=== PATIENT | female | born 1960 | race Two or more races ===

== ENCOUNTER 2020-06-16 19:38 | Inpatient (IN) | payer OTHER ==
[2020-06-15 19:45] VITALS: BP 120/53
[~2020-06-16] VITALS: Ht 152.4 cm; Wt 101.2 kg
[2020-06-16] MEDS ORDERED: APIX2.5T PO (20:22)
[2020-06-16] MEDS ORDERED: METF-442 PO (20:22)
[2020-06-16] MEDS ORDERED: OXYC10TA49 PO (20:22)
[2020-06-16] MEDS ORDERED: ATOR20TA PO (20:22)
[2020-06-16] MEDS ORDERED: DOCU100C36 PO (20:22)
[2020-06-16 20:23] VITALS: BP 120/53
--- NOTE | 2020-06-16 20:29 | NUR ---
MS/OPHELIA/RN RECEIVED FROM [facility] AT ABOUT 1945, BROUGHT IN BY AMBULANCE. PATIENT WAS AWAKE, ALERT, ORIENTED X 4, [place] SPEAKING, COMFORTABLE, NO SIGNS OF DISTRESS NOTED. ADMISSION DONE PER PROTOCOL, ADMISSION INFORMATIONS WAS OBTAINED WITH THE HELP OF THE DAUGHTER WHO WAS AT BEDSIDE, TAUGHT THE USE OF CALL LIGHT AND PLACED AT BEDSIDE WITHIN REACH, FALL PRECAUTIONS PER PROTOCOL IMPLEMENTED. ENCOURAGED PATIENT TO USE THE CALL LIGHT FOR ASSISTANCE, VERBALIZED UNDERSTANDING. DUANE SHARMA, PEDRO, NOTIFIED FOR ADMISSION ORDERS. WILL MONITOR.
[2020-06-16] MEDS ORDERED: ONDANSETRON HCL/PF 4 MG/2 ML VIAL IVP PRN (21:00)
[2020-06-16] MEDS ORDERED: MAG HYDROX/AL HYDROX/SIMETH 30 ML UDC PO PRN (21:00)
[2020-06-16] MEDS ORDERED: Z GUARD REMEDY 2 OZ OINT TP PRN (21:00)
[2020-06-16] MEDS ORDERED: MAGNESIUM HYDROXIDE 30 ML UDC PO PRN (21:00)
[2020-06-16] MEDS ORDERED: ENOXAPARIN SODIUM 40 MG/0.4 ML DISP.SYRIN SQ SCH (21:00)
[2020-06-16] MEDS ORDERED: ACETAMINOPHEN 325 MG TABLET PO PRN (21:00)
[2020-06-16] MEDS ORDERED: LEVOFLOXACIN 500 MG /D5W 100ML 100 ML IV ONE (22:11)
[2020-06-16] MEDS: IV NS 0.9% 1,000 ML IV PRN (22:16)
[2020-06-16] MEDS: LEVOFLOXACIN 500 MG /D5W 100ML 500 MG in PREMIX 1 EA IV SCH (22:16)
--- NOTE | 2020-06-17 00:49 | NUR ---
MS/TELE/RN PATIENT IS SLEEPING, AROUSES EASILY, APPEAR COMFORTABLE, NO DISTRESS NOTED, CALL LIGHT IN REACH, WILL CONTINUE TO MONITOR.
[2020-06-17] MEDS ORDERED: DEXTROSE 50%-WATER 50 ML DISP.SYRIN IV PRN (01:30)
[2020-06-17] MEDS ORDERED: INSULIN REGULAR, HUMAN 100 UNIT/ML 3 ML VIAL SQ PRN (01:30)
--- NOTE | 2020-06-17 06:01 | NUR ---
MS/TELE/RN PATIENT IS SLEEPING AT THIS TIME, APPEAR COMFORTABLE, NO SIGNS OF DISTRESS NOTED, CALL LIGHT IN REACH, ALL NEEDS ATTENDED AT THIS TIME, WILL CONTINUE TO MONITOR.
[2020-06-17 06:17] LABS: BASOPHILS % (AUTO) 0.3 % (0.0-2.0); EOSINOPHILS % (AUTO) 0.8 % (0.0-6.0); HEMATOCRIT 34 % (33-45); HEMOGLOBIN 11.3 g/dL (11.5-14.8); LYMPHOCYTES # (AUTO) 1.6 /CMM (0.8-4.8); MEAN CORPUSCULAR HGB CONC 33 g/dl (31.0-36.0); MEAN CORPUSCULAR VOLUME 89 fL (82-100); MONOCYTES # (AUTO) 0.6 /CMM (0.1-1.30); MONOCYTES % (AUTO) 7.5 % (2.0-12.0); NEUTROPHILS # (AUTO) 5.4 /CMM (1.8-8.9); NEUTROPHILS % (AUTO) 70.4 % (43.0-81.0); PLATELET COUNT (AUTO) 223 /CMM (150-450); WHITE BLOOD COUNT (AUTO) 7.6 K/uL (4.3-11.0)
[2020-06-17 06:30] LABS: BILIRUBIN,URINE NEGATIVE (NEGATIVE); COLOR,URINE YELLOW (YELLOW); LEUKOCYTE ESTERASE ,URINE NEGATIVE (NEGATIVE); NITRITE, URINE NEGATIVE (NEGATIVE); PROTEIN,URINE NEGATIVE (NEGATIVE); UGLUCOSE NEGATIVE (NEGATIVE); UROBILINOGEN,URINE 0.2 EU/dL (0.2)
[2020-06-17 07:04] LABS: CALCIUM, SERUM 8.5 mg/dL (8.5-10.1); CREATININE 0.5 mg/dL (0.6-1.3); MAGNESIUM 2.2 mg/dL (1.8-2.4); PHOSPHORUS 3.4 mg/dL (2.5-4.9)
--- NOTE | 2020-06-17 07:54 | NUR ---
WOUND CARE CONSULT: PT PRESENTS WITH DISCOLORATION TO RT LOWER EXTREMITY AND SURGICAL DRESSINGS WHICH ARE DRY AND INTACT TO RT KNEE, PRESENT ON ADMISSION. RECOMMEND FOLLOW UP WITH ORTHO SURGEON. PT IS CONTINENT AND ABLE TO TURN AND REPOSITION IN BED. WILL SEE PRN. Addendum: 06/17/20 at 0756 by TAIWO MURCIA WNDNU Amended: Links added.
--- NOTE | 2020-06-17 07:55 | NUR ---
MS/RN OPENING NOTE RECEIVED PATIENT FROM [facility] NURSE. PATIENT IS AWAKE IN HOSPITAL BED A/O X4. NO ACUTE DISTRESS NOTED. PATIENT ON ROOM AIR, TOLERATING WELL NO SOB NOTED, BREATHING EVEN, NON LABORED. ALL SAFETY MEASURES IN PLACE, BED LOCKED AND IN LOWEST POSITION, CALL LIGHT WITHIN REACH. WILL CONTINUE TO MONITOR AND ENSURE SAFETY.
[2020-06-17] MEDS: BLOOD SUGAR DIAGNOSTIC 1 EACH STRIP IN SCH ×4 (07:57→22:14)
[2020-06-17] MEDS ORDERED: oxyCODONE IR immediate release 5 MG PO PRN (08:00)
[2020-06-17 08:07] VITALS: BP 120/78
[2020-06-17] MEDS: METFORMIN 500 MG TABLET PO SCH ×2 (08:36→16:10)
[2020-06-17] MEDS: PANTOPRAZOLE 40 MG TABLET.DR PO SCH (08:36)
[2020-06-17] MEDS: DOCUSATE SODIUM 100 MG CAPSULE PO SCH ×2 (08:36→16:10)
[2020-06-17 15:54] VITALS: BP 115/63
[2020-06-17] MEDS: APIXABAN 2.5 MG TABLET PO SCH (16:13)
[2020-06-17] MEDS: HYDROCODONE/APAP 5/325MG TABLET PO PRN (19:01)
--- NOTE | 2020-06-17 19:04 | NUR ---
MS/RN CLOSING NOTE PATIENT IS AWAKE IN HOSPITAL BED A/O X3. NO ACUTE DISTRESS NOTED. PATIENT ON ROOM AIR, TOLERATING WELL NO SOB NOTED, BREATHING EVEN, NON LABORED. ALL SAFETY MEASURES IN PLACE, BED LOCKED AND IN LOWEST POSITION, CALL LIGHT WITHIN REACH. ALL NEEDS MET THROUGHOUT THE SHIFT. WILL ENDORSE TO INCLINED RAILWAY OPERATOR NURSE.
--- NOTE | 2020-06-17 19:46 | NUR ---
MS/TELE/RN RECEIVED PATIENT IN ROOM LYING IN BED AWAKE, ALERT, ORIENTED, COMFORTABLE, NO C/O PAIN, NO DISTRESS NOTED, CALL LIGHT IN REACH, FALL PRECAUTIONS PER PROTOCOL IMPLEMENTED, CALL LIGHT IN REACH. WILL MONITOR.
[2020-06-17 20:00] VITALS: BP 114/61
[2020-06-17] MEDS: LEVOFLOXACIN 500 MG /D5W 100ML 500 MG in PREMIX 1 EA IV SCH (21:24)
[2020-06-17] MEDS ORDERED: ATORVASTATIN 10 MG TABLET PO SCH (22:00)
[2020-06-17] MEDS ORDERED: SENNOSIDES 8.6 MG TABLET PO SCH (22:00)
[2020-06-18 05:57] LABS: BASOPHILS % (AUTO) 0.2 % (0.0-2.0); EOSINOPHILS % (AUTO) 1.9 % (0.0-6.0); HEMATOCRIT 35 % (33-45); HEMOGLOBIN 11.3 g/dL (11.5-14.8); LYMPHOCYTES # (AUTO) 1.8 /CMM (0.8-4.8); LYMPHOCYTES % (AUTO) 25.5 % (20.0-44.0); MEAN CORPUSCULAR HGB CONC 33 g/dl (31.0-36.0); MEAN CORPUSCULAR VOLUME 90 fL (82-100); MONOCYTES # (AUTO) 0.6 /CMM (0.1-1.30); NEUTROPHILS # (AUTO) 4.5 /CMM (1.8-8.9); NEUTROPHILS % (AUTO) 63.4 % (43.0-81.0); PLATELET COUNT (AUTO) 232 /CMM (150-450); RED BLOOD CELL COUNT(AUTO) 3.88 MIL/uL (4.0-5.2)
[2020-06-18] MEDS: BLOOD SUGAR DIAGNOSTIC 1 EACH STRIP IN SCH ×3 (06:45→17:23)
[2020-06-18] MEDS: IV NS 0.9% 1,000 ML IV PRN (06:45)
[2020-06-18 06:55] LABS: BILIRUBIN,TOTAL 0.8 mg/dL (0.2-1.0); CALCIUM, SERUM 8.9 mg/dL (8.5-10.1); CREATININE 0.6 mg/dL (0.6-1.3); MAGNESIUM 2.2 mg/dL (1.8-2.4); PHOSPHORUS 3.4 mg/dL (2.5-4.9); TOTAL PROTEIN, SERUM 6.6 g/dL (6.4-8.2)
--- NOTE | 2020-06-18 07:30 | NUR ---
PT RECEIVED RESTING COMFORTABLY IN BED. NO S/S OR C/O PAIN OR DISTRESS NOTED. SIDE RAILS UP X2, CALL LIGHT LEFT WITHIN REACH. WILL CONTINUE PLAN OF CARE.
[2020-06-18 08:00] VITALS: BP 125/58
[2020-06-18] MEDS: PANTOPRAZOLE 40 MG TABLET.DR PO SCH (08:43)
[2020-06-18] MEDS: DOCUSATE SODIUM 100 MG CAPSULE PO SCH ×2 (08:43→17:22)
[2020-06-18] MEDS: APIXABAN 2.5 MG TABLET PO SCH ×2 (08:45→17:23)
[2020-06-18] MEDS: METFORMIN 500 MG TABLET PO SCH ×2 (08:45→17:22)
[2020-06-18] MEDS: HYDROCODONE/APAP 5/325MG TABLET PO PRN (15:45)
[2020-06-18 16:00] VITALS: BP 124/60
--- NOTE | 2020-06-18 19:29 | NUR ---
CHANGE OF SHIFT REPORT PT RESTING COMFORTABLY IN BED. NO S/S OR C/O PAIN OR DISTRESS NOTED. SIDE RAILS UP X2, CALL LIGHT LEFT WITHIN REACH. PT KEPT CLEAN, DRY, AND COMFORTABLE. NO SIGNIFICANT CHANGES SINCE PREVIOUS SHIFT WILL GIVE REPORT TO NOC RN. followed up with transportation, stated they will arrive at 8PM. pt notified.
--- NOTE | 2020-06-18 19:30 | NUR ---
REPORT RECIEVED; PENDING DISCHARGE. REPORT RECIEVED FROM BENJY GURROLA. PT RESTING IN BED. SIDE RAILS UP X2, CALL LIGHT LEFT WITHIN REACH. PT IS BEING DISCHARGED. DISCHARGE PAPERS COMPLETED BY BENJY GURROLA. AWAITING TRANSPORT TO ARRIVE. WITH EXPECTED TIME OF 8 PM. PT VERBALIZED UNDERSTANDING WITH PLAN FOR DISCHARGE. BELONGINGS ARE PACKED AND READY. IV REMOVED FROM LEFT AC#20 AND RFA#20 CATHETERS INTACT NO S/S OF COMPLICATIONS. WILL CONT TO MONITOR UNTIL TRANSPORT ARRIVES.
--- NOTE | 2020-06-18 20:05 | NUR ---
TRANSPORT ARRIVED PATIENT ASSISTED TO [facility]. PAPERWORK AND BELONGINGS TAKEN. PT IN NO APPARENT DISTRESS. PT TO BE TAKEN TO [facility]. REPORT CALLED IN BY PREVIOUS NURSE. PT DISCHARGED TO [facility] TRANSPORT TEAM.
== END 2020-06-18 20:10 | DRG 463 ==
LOC: MED 19:38
PROVIDERS: ADMIT Registered Nurse
DX: N10 Acute pyelonephritis (principal); E66.01 Morbid (severe) obesity due to excess calories; B96.89 Other specified bacterial agents as the cause of diseases classified elsewhere; E11.9 Type 2 diabetes mellitus without complications; I10 Essential (primary) hypertension; G89.18 Other acute postprocedural pain; Z79.84 Long term (current) use of oral hypoglycemic drugs; Z79.899 Other long term (current) drug therapy; Z96.651 Presence of right artificial knee joint
CPT/HCPCS: 36415; 80048-TC; 80053-TC; 80061-TC; 82962-TC; 83735-TC; 84100-TC; 85025-TC; 87040-TC; 87081-TC; 87086-TC; 97112-TC; 97116-TC; 97530-TC; A4216; G0378; J1650; J1815; J1956; J7030